=== PATIENT | male | born 1990 | race American Indian/Alaskan Native ===

== ENCOUNTER 2021-03-08 17:38 | Emergency (ER) | payer SELFPAY ==
--- NOTE | 2021-03-08 20:51 | Emergency Department Report ---
ED General Adult HPI - General Chief complaint: Chest Pain Stated complaint: HEAD EXPLODING,CHEST HURTING,TEETH PAIN Time Seen by Provider: 03/08/21 20:47 Source: patient Mode of arrival: Ambulatory Limitations: No Limitations - History of Present Illness Initial comments: Patient is a 30 years old male with no significant past medical history. Patient presented to the ER male complaining of dental pain that is been going on for few days causing him to have a headache and stated that he feels some chest pain sometimes. Patient denies any shortness of breath. No fever or chills. Patient stated that the headache is on the right side where he had he have his dental issue. - Related Data Allergies Allergy/AdvReac Type Severity Reaction Status Date / Time No Known Allergies Allergy Verified 03/08/21 17:44 ED Review of Systems ROS: Stated complaint: HEAD EXPLODING,CHEST HURTING,TEETH PAIN Other details as noted in HPI Comment: All other systems reviewed and negative Constitutional: denies: chills, fever Respiratory: denies: cough, shortness of breath, SOB with exertion Cardiovascular: chest pain Gastrointestinal: denies: abdominal pain, nausea, vomiting, diarrhea, constipation, hematemesis, hematochezia Musculoskeletal: denies: back pain Neurological: headache. denies: weakness, numbness, paresthesias, confusion, abnormal gait ED Past Medical Hx - Past Medical History Previous Medical History?: Yes Hx Hypertension: Yes - Surgical History Past Surgical History?: No ED Physical Exam - General Limitations: No Limitations General appearance: alert, in no apparent distress - Head Head exam: Present: atraumatic, normocephalic, normal inspection - ENT ENT exam: Present: other (Dental caries, upper and lower on the right side.) - Neck Neck exam: Present: normal inspection, full ROM. Absent: tenderness, meningismus, lymphadenopathy, thyromegaly - Respiratory Respiratory exam: Present: normal lung sounds bilaterally - Cardiovascular Cardiovascular Exam: Present: regular rate, normal rhythm, normal heart sounds - GI/Abdominal GI/Abdominal exam: Present: soft, normal bowel sounds. Absent: distended, tenderness, guarding, rebound, rigid - Extremities Exam Extremities exam: Present: normal inspection, full ROM, normal capillary refill. Absent: tenderness, pedal edema, joint swelling, calf tenderness - Back Exam Back exam: Present: normal inspection, full ROM. Absent: CVA tenderness (R), CVA tenderness (L) - Neurological Exam Neurological exam: Present: alert, oriented X3, CN II-XII intact, normal gait, reflexes normal - Psychiatric Psychiatric exam: Present: normal mood - Skin Skin exam: Present: warm, intact, normal color ED Course Vital Signs 03/08/21 17:45 Temperature 98.2 F Pulse Rate 94 H Respiratory 18 Rate Blood Pressure 147/103 O2 Sat by Pulse 99 Oximetry ED Medical Decision Making - EKG Data -: EKG Interpreted by Me EKG shows normal: sinus rhythm Rate: normal - EKG Data Interpretation: no acute changes - Medical Decision Making Patient is a 30 years old male with no significant past medical history. Patient presented to the ER male complaining of dental pain that is been going on for few days causing him to have a headache and stated that he feels some chest pain sometimes. Patient denies any shortness of breath. No fever or chills. Patient stated that the headache is on the right side where he had he have his dental issue. EKG is unremarkable. Patient chest pain to the right side and is atypical. Patient given prescription for amoxicillin and tramadol and advised to follow-up with his primary doctor in the next 2 to 3 days and to return to the ER if he develop any new symptoms. Patient also advised to follow-up with dentist in the next 2 to 3 days. Critical care attestation.: If time is entered above; I have spent that time in minutes in the direct care of this critically ill patient, excluding procedure time. ED Disposition Clinical Impression: Acute chest pain, Dental caries, Pain due to dental caries Disposition: 01 HOME / SELF CARE / HOMELESS Is pt being admited?: No Condition: Stable Instructions: Chest Pain (ED), Nonspecific Chest Pain, Adult, Dental Abscess Referrals: PRIMARY CARE,MD [Primary Care Provider] - 3-5 Days
[2021-03-08 21:54] VITALS: BP 160/95
--- NOTE | 2021-03-09 10:34 | Electrocardiograph Report ---
[facility] Test Date: 2021-03-08 Test Time: 17:53:24 Pat Name: JONA BEY Department: Room: Gender: M Band Saw Operator: AHMET : 1990 Requested By: MERLYN SOLIZ Order Number: [id number] Reading MD: Hannah Bailey Measurements Intervals [place] Rate: 88 P: 50 SD: 164 QRS: 21 QRSD: 93 T: 24 QT: 353 QTc: 428 Interpretive Statements Sinus rhythm No previous ECG available for comparison Electronically Signed On 03-09-2021 10:34:13 EST by Hannah Bailey
== END 2021-03-08 21:57 | disposition home or self-care (01) ==
LOC: EDBD → ED 17:38
DX: R07.89 Other chest pain (principal); K02.9 Dental caries, unspecified; I10 Essential (primary) hypertension
CPT/HCPCS: 93005; 99282